=== PATIENT | female | born 1975 | race Caucasian/White ===

== ENCOUNTER 2023-06-23 11:02 | Emergency (ER) | payer SELFPAY ==
[~2023-06-23] VITALS: Ht 152.4 cm; Wt 72.6 kg
[~2023-06-23 11:02] MED LIST: ACYC400T14 PO; PRED10TA5 PO
[2023-06-23 11:03] VITALS: BP 153/76; PULSE 76; RESP 18; TEMP 97.4; O2SAT 98
[2023-06-23 11:33] VITALS: BP 144/77; RESP 16
[2023-06-23 11:36] VITALS: PULSE 89; O2SAT 99
[2023-06-23] MEDS ORDERED: POLY15SO74 LEFT EYE (12:27)
[2023-06-23] MEDS ORDERED: PRED20TA5 PO (12:27)
[2023-06-23] MEDS ORDERED: ACYC400T14 PO (12:27)
[2023-06-23] MEDS ORDERED: MINE3.5O30 LEFT EYE (12:27)
== END 2023-06-23 12:54 | disposition home or self-care (01) ==
LOC: MED 11:02
DX: G51.0 Bell's palsy (principal); Z79.899 Other long term (current) drug therapy
CPT/HCPCS: 70450; 99284